=== PATIENT | female | born 1945 | race Caucasian/White ===

== ENCOUNTER 2016-09-19 07:15 | Day surgery (SDC) | payer MEDICARE ==
[~2016-09-19] VITALS: Ht 154.9 cm; Wt 60.3 kg
[~2016-09-19 07:15] MED LIST: ASPI-973 PO; CALC-975 PO; ESOM20TA PO; LOSA50TA37 PO; PLAN450T PO; PSYL0.4C2 PO; Sodium Chloride LOK Flush 10 mL Syringe IV PRN; fentaNYL-PF 50 mCg/mL 2 mL Inj IVPUSH PRN
[2016-09-19 07:41] VITALS: BP 141/74; PULSE 76; RESP 14; O2SAT 94
[2016-09-19 08:27] VITALS: BP 116/61; PULSE 73; RESP 15; O2SAT 96
--- NOTE | 2016-09-19 08:28 | PCM.ENDCOL ---
Colonoscopy Date of Service: Sep 19, 2016 Physician Jose Manuel Huang MD Pre Procedure Diagnosis: Screening and questionable history of ulcerative colitis Blood in the stool has now resolved Post Procedure Dx & Findings: Polyp hemorrhoids diverticula Procedure Colonoscopy PROCEDURE IN DETAIL: Prep adequate Withdrawal time 13 minutes After unremarkable rectal examination the Olympus video colonoscope was inserted patient's anal canal and was advanced to cecum. Landmarks were identified including the ileocecal valve and appendiceal orifice. Scope was withdrawn systematically. Visualized colonic mucosa showed healthy shiny mucosa with normal healthy-appearing vasculature. In the cecum, there was a 3 mm polyp which was removed completely using cold snare. In the sigmoid colon multiple small diverticuli noted. Rectum showed healthy mucosa with normal healthy-appearing vasculature. Random biopsies obtained. In the rectum retroflexion was done which showed hemorrhoids. Anal canal was inspected carefully on the way out and hemorrhoids noted. Impression Polyp 1 status post complete removal Diverticuli Hemorrhoids Spoke with the patient, ulcerative colitis protocol risk-benefit was reevaluated. It was established 5 years ago that she was told she has normal risk. Therefore after talking to patient, proceed as if it is a normal risk. Recommendation Repeat colonoscopy 5 years Diverticula diet Follow up in GI clinic to discuss further. Presedation Assessment Risks and Benefits Informed consent was obtained from the patient after all risks and benefits including but not limited to drug reaction, infection, pain, bleeding, perforation, as well as alternatives were discussed. Patient monitoring Continuous pulse oximetry, cardiac monitoring, blood pressure monitoring, IV access, and oxygen at 2L per nasal cannula. Periprocedural Fentanyl: Fentanyl 100mcg Incrementally Midazolam: Midazolam 5mg Incrementally Complications There were no periprocedural complications identified. Post Procedure Plan Post Procedure Recommendations 1. Restrict activities today. 2. Resume normal activities in the morning. 3. Resume medications. 4. Patient informed of normal post procedure side effects as bloating, drowsiness, blood streaking in the stool. 5. average risk CRCS. If colon polyps come back as: -Hyperplastic- can repeat colonoscopy in 10 years -Tubular adenoma- repeat colonoscopy in 5 years -Tubulovillous/villous adenoma- repeat colonoscopy in 3 years -If any dysplasia- return to clinic as soon as possible 6. Please don't hesitate to call me with any questions. Jose Manuel Huang MD Sep 19, 2016 08:28
[2016-09-19 08:36] VITALS: BP 99/58; PULSE 68; RESP 15; O2SAT 96
[2016-09-19 08:46] VITALS: BP 120/50; PULSE 67; RESP 15; O2SAT 95
--- NOTE | 2016-09-20 14:54 | PATH ---
SURGICAL PATHOLOGY Attending Physician:Jose Manuel Huang M.D. CASE STATUS: Signed Out PATIENT NAME: RAMON LAZO PID: [id number] : 1945 DATE COLLECTED:09/19/2016 16:05 SPECIMEN: 1: Colon, Polyp 2: Rectum, Biopsy CLINICAL HISTORY: 1. CECUM POLYP 2. 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 2.RECTAL BIOPSY: HYPERPLASTIC POLYP INVOLVING ALL BIOPSY FRAGMENTS. ICD10 D12.0 GROSS DESCRIPTION: Received are two formalin-filled containers, both labeled with the patient' s name: 1. Received in formalin, labeled with the patient' s name and "cecum polyp", is one fragment of rivera, soft tissue measuring 0.4 x 0.3 x 0.2 cm. The fragment is totally submitted in cassette 1A. 2. Received in formalin, labeled with the patient' s name and "rectum biopsy", are three fragments of rivera, soft tissue ranging in size from 0.1 x 0.1 x 0.1 cm to 0.2 x 0.1 x 0.1 cm. All fragments are totally submitted in cassette 2A. ([id number]) MICRO DESCRIPTION: See diagnosis. ICD-9 CODES: CPT CODES: 1: 14237 2: 34528 Electronically Signed Out Everardo Maldonado MD [facility] [address], [place] [address] Technical component performed at [facility], [facility] [address], [place], [address]
== END 2016-09-19 23:59 | disposition home or self-care (01) ==
LOC: END 07:15
PROVIDERS: ATTEND Internal Medicine
DX: Z12.11 Encounter for screening for malignant neoplasm of colon (principal); D12.0 Benign neoplasm of cecum; K62.1 Rectal polyp; K57.30 Diverticulosis of large intestine without perforation or abscess without bleeding; K64.8 Other hemorrhoids; I34.8 Other nonrheumatic mitral valve disorders; Z79.82 Long term (current) use of aspirin
CPT/HCPCS: 45380; 45385; 88305; 99153; G0500